=== PATIENT | male | born 1980 | race Caucasian/White ===

== ENCOUNTER 2016-08-14 16:29 | Emergency (ER) | payer BC ==
[2016-08-14] MEDS ORDERED: Sodium Chloride 0.9% 10 ML Syringe FLUSH PRN (16:50)
[2016-08-14] MEDS ORDERED: Ondansetron 4 MG/2 ML SDV IVPUSH ONE (16:50)
[2016-08-14] MEDS ORDERED: Sodium Chloride 0.9% 2.5 ML Syringe FLUSH PRN (16:50)
[2016-08-14] MEDS ORDERED: Sodium Chloride 0.9% 1,000 ML IV ONE (16:55)
[2016-08-14] MEDS ORDERED: HYDROmorphone 2 MG/ML Syringe IVPUSH ONE (16:55)
[2016-08-14] MEDS ORDERED: Ketorolac 30 MG/ML SDV IVPUSH ONE (16:55)
[2016-08-14] MEDS ORDERED: HYDROmorphone 1 MG/ML Syringe IVPUSH ONE (17:01)
--- NOTE | 2016-08-14 17:08 | EDM.PDOC ---
Addendum entered and electronically signed by Desi Leal NP 08/14/16 22: 10: Script for Cipro 500mg one bid x 10 days. Patient called with instructions Original Note: ED HPI GENERAL MEDICAL PROBLEM - General Chief Complaint: Flank Pain Stated Complaint: PT HAS STOMACH PAINS Time Seen by Provider: 08/14/16 16:32 Source of Information: Reports: Patient History Limitations: Reports: No limitations - History of Present Illness INITIAL COMMENTS - FREE TEXT/NARRATIVE: Presents reporting left flank pain. The patient states that he had a kidney stone about 5 years previous. Now he has a 8 hour history of back left flank and left testicular pain which has been worsening. Denies fever dysuria or any other symptoms. Left Flank Pain Score (Numeric/FACES): 10 Left Pain Score (Numeric/FACES): 10 - Related Data Allergies Allergy/AdvReac Type Severity Reaction Status Date / Time No Known Allergies Allergy Verified 08/14/16 16:44 Home Meds: Home Meds FLUoxetine [PROzac] 40 mg PO DAILY 08/14/16 [History] Pantoprazole [ProTONIX] 40 mg PO DAILY 08/14/16 [History] Tamsulosin HCl [Flomax] 0.4 mg PO DAILY #14 cap.er.24h 08/14/16 [Rx] Topiramate 100 mg PO DAILY 08/14/16 [History] Past Medical History Gastrointestinal History: Reports: GERD Neurological History: Reports: Migraines, Seizure Psychiatric History: Reports: Anxiety, Depression - Infectious Disease History Infectious Disease History: Reports: Chicken pox Social & Family History - Family History Family Medical History: Noncontributory - Tobacco Use Smoking Status *Q: Current Every Day Smoker Years of Tobacco use: 20 Packs/Tins Daily: 0.5 - Caffeine Use Caffeine Use: Reports: None - Recreational Drug Use Recreational Drug Use: Yes Drug Use in Last 12 Months: Yes Recreational Drug Type: Reports: Marijuana/Hashish Recreational Drug Use Frequency: Rarely ED ROS GENERAL - Review of Systems Review Of Systems: ROS reveals no pertinent complaints other than HPI. ED EXAM, RENAL/ - Physical Exam Exam: See Below Exam Limited By: No limitations General Appearance: alert, moderate distress (Due to pain) Ears: normal external exam Nose: normal inspection Throat/Mouth: Normal inspection Head: atraumatic, normocephalic Neck: normal inspection Respiratory/Chest: no respiratory distress, lungs clear, normal breath sounds Cardiovascular: normal peripheral pulses, regular rate, rhythm, no murmur GI/Abdominal: Soft Back Exam: normal inspection, full range of motion, CVA tenderness (L) Extremities: normal inspection Neurological: alert, oriented Psychiatric: normal affect, normal mood Skin Exam: Warm, Dry, Intact, Normal color, No rash Course - Vital Signs Last Recorded V/S: Last Vital Signs Temp 36.4 C 08/14/16 19:01 Pulse 100 08/14/16 19:01 Resp 16 08/14/16 19:01 BP 126/71 08/14/16 19:01 Pulse Ox 98 08/14/16 19:01 - Orders/Labs/Meds Orders: Active Orders 24 hr Category Date Time Status Abdomen Pelvis wo Cont [CT] Stat Exams 08/14/16 18:12 Taken Sodium Chloride 0.9% [Saline Flush] Med 08/14/16 16:50 Active 10 ml FLUSH ASDIRECTED PRN Sodium Chloride 0.9% [Saline Flush] Med 08/14/16 16:50 Active 2.5 ml FLUSH ASDIRECTED PRN Saline Lock Insert [OM.PC] Stat Oth 08/14/16 16:50 Ordered Medication Orders Sodium Chloride (Saline Flush) 10 ml FLUSH ASDIRECTED PRN PRN Reason: Keep Vein Open Sodium Chloride (Saline Flush) 2.5 ml FLUSH ASDIRECTED PRN PRN Reason: Keep Vein Open Labs: Laboratory Tests 08/14/16 08/14/16 08/14/16 Range/Units 17:09 17:09 17:52 WBC 17.23 H (4.0-11.0) K/uL RBC 4.93 (4.50-5.90) M/uL Hgb 15.5 (13.0-17.0) g/dL Hct 44.7 (38.0-50.0) % MCV 90.7 (80.0-98.0) fL MCH 31.4 (27.0-32.0) pg MCHC 34.7 (31.0-37.0) g/dL RDW Std Deviation 41.9 (28.0-62.0) fl RDW Coeff of [place] 13 (11.0-15.0) % Plt Count 230 (150-400) K/uL MPV 10.00 (7.40-12.00) fL Neut % (Auto) 69.4 (48.0-80.0) % Lymph % (Auto) 20.1 (16.0-40.0) % [place] % (Auto) 9.8 (0.0-15.0) % Eos % (Auto) 0.6 (0.0-7.0) % Baso % (Auto) 0.1 (0.0-1.5) % Neut # (Auto) 11.9 H (1.4-5.7) K/uL Lymph # (Auto) 3.5 H (0.6-2.4) K/uL [place]ke # (Auto) 1.7 H (0.0-0.8) K/uL Eos # (Auto) 0.1 (0.0-0.7) K/uL Baso # (Auto) 0.0 (0.0-0.1) K/uL Nucleated RBC % 0.0 /100WBC Nucleated RBCs # 0 K/uL Sodium 141 (136-146) mmol/L Potassium 3.8 (3.5-5.1) mmol/L Chloride 113 H (98-110) mmol/L Carbon Dioxide 16 L (21-31) mmol/L BUN 16 (6.0-23.0) mg/dL Creatinine 1.3 (0.6-1.5) mg/dL Est Cr Clr Drug Dosing 81.11 mL/min Estimated GFR (MDRD) > 60.0 ml/min Glucose 104 (60-110) mg/dL Calcium 9.8 (8.8-10.8) mg/dL Total Bilirubin 0.3 (0.1-1.5) mg/dL AST 19 (5-40) IU/L ALT 25 (8-54) IU/L Alkaline Phosphatase 114 (40-150) Total Protein 8.1 H (6.0-8.0) g/dL Albumin 4.4 (3.5-5.0) g/dL Globulin 3.7 H (2.0-3.5) g/dL Albumin/Globulin Ratio 1.2 L (1.3-2.8) Urine Color YELLOW Urine Appearance SLT CLOUDY Urine pH 6.0 (5.0-8.0) Ur Specific [place] 1.025 (1.001-1.035) Urine Protein TRACE (NEGATIVE) mg/dL Urine Glucose (UA) NEGATIVE (NEGATIVE) mg/dL Urine Ketones NEGATIVE (NEGATIVE) mg/dL Urine Occult Blood LARGE H (NEGATIVE) Urine Nitrite NEGATIVE (NEGATIVE) Urine Bilirubin NEGATIVE (NEGATIVE) Urine Urobilinogen 0.2 (<2.0) EU/dL Ur Leukocyte Esterase NEGATIVE (NEGATIVE) Urine RBC 50-75 (0-2/HPF) Urine WBC 1-2 (0-5/HPF) Ur Epithelial Cells RARE (NONE-FEW) Urine Bacteria FEW (NEGATIVE) Urine Mucus LIGHT (NONE-MOD) Meds: Medications Generic Name Dose Route Start Last Admin Trade Name Freq PRN Reason Stop Dose Admin Sodium Chloride 10 ml 08/14/16 16:50 Saline Flush FLUSH ASDIRECTED PRN Keep Vein Open Sodium Chloride 2.5 ml 08/14/16 16:50 Saline Flush FLUSH ASDIRECTED PRN Keep Vein Open Discontinued Medications Generic Name Dose Route Start Last Admin Trade Name Freq PRN Reason Stop Dose Admin Hydromorphone HCl 1 mg 08/14/16 16:55 08/14/16 17:22 Dilaudid IVPUSH 08/14/16 16:56 Not Given ONETIME ONE Hydromorphone HCl 0.5 mg 08/14/16 17:01 08/14/16 17:17 Dilaudid IVPUSH 08/14/16 17:02 0.5 mg ONETIME ONE Administration Sodium Chloride 1,000 mls @ 999 mls/hr 08/14/16 16:55 08/14/16 17:12 Normal Saline IV 08/14/16 17:55 999 mls/hr STAT ONE Administration Ketorolac Tromethamine 30 mg 08/14/16 16:55 08/14/16 17:15 Toradol IVPUSH 08/14/16 16:56 30 mg ONETIME ONE Administration Ondansetron HCl 4 mg 08/14/16 16:50 08/14/16 17:13 Zofran IVPUSH 08/14/16 16:51 4 mg ONETIME ONE Administration Departure - Departure Time of Disposition: 20:04 Disposition: Home, Self-Care 01 Condition: good Clinical Impression: Renal calculi - Discharge Information Referrals: PCP,None [Primary Care Provider] - Matt Gilbert MD [Physician] - Forms: ED Department Discharge Additional Instructions: 1. Drink plenty of fluids. 2. Flomax one daily 3. Pain medication every 4 hours as needed. 4. Follow up with Dr. Gilbert, Urology in the clinic. - My Orders Last 24 Hours: My Active Orders 08/14/16 16:50 Sodium Chloride 0.9% [Saline Flush] 10 ml FLUSH ASDIRECTED PRN Sodium Chloride 0.9% [Saline Flush] 2.5 ml FLUSH ASDIRECTED PRN Saline Lock Insert [OM.PC] Stat 08/14/16 18:12 Abdomen Pelvis wo Cont [CT] Stat - Assessment/Plan Last 24 Hours: My Active Orders 08/14/16 16:50 Sodium Chloride 0.9% [Saline Flush] 10 ml FLUSH ASDIRECTED PRN Sodium Chloride 0.9% [Saline Flush] 2.5 ml FLUSH ASDIRECTED PRN Saline Lock Insert [OM.PC] Stat 08/14/16 18:12 Abdomen Pelvis wo Cont [CT] Stat
[2016-08-14 17:40] LABS: CHLORIDE,CL 113 mmol/L (98-110); SODIUM,NA 141 mmol/L (136-146)
[2016-08-14 20:28] VITALS: BP 120/78
--- NOTE | 2016-08-15 15:46 | CT ---
EXAM DATE: 08/14/16 PATIENT'S AGE: 36 Patient: MISAEL FORDE Facility: [place], [place] Site . Site : 1980 Study: CT Abdomen/Pelvis [id number]/9/2017 6:35:53 PM Ordering Physician: Doctor Fermin Final Report: INDICATION: Left flank pain. TECHNIQUE: CT abdomen and pelvis without contrast. COMPARISON: None FINDINGS: Lower chest: Unremarkable. Liver: Diffuse moderate low-attenuation steatosis. . Spleen: Unremarkable. Pancreas: Unremarkable. Gallbladder and bile ducts: Unremarkable. Kidneys: 6 x 8 mm calcification upper pole collecting system left kidney. Subtle peripelvic stranding left kidney. Minimal pelviectasis and diffuse left hydroureter without filling measurable ureteral defect. Too small to measure high attenuation focus posterior bladder or ureteral vesicular junction (image 58 series 203 and image 132 series 201). Urinary bladder is decompressed. 1 mm nonobstructing calculus lower pole right kidney. Adrenal glands: Unremarkable. GI tract: Unremarkable. Appendix is normal. Vascular structures: Unremarkable. Lymph nodes: Unremarkable. Miscellaneous: Unremarkable. No free air or significant free fluid. Pelvic Organs: Unremarkable. Bones: Unremarkable for age. IMPRESSION: Very subtle hydronephrosis and hydroureter on the left may be too small to measure UVJ stone or related to recently passed stone. Moderately large nonobstructing calculus mid pole left kidney. An 8 mm upper pole nonobstructing calculus left kidney. Dictated by Justino Chambers MD @ Aug 14 2016 6:57PM (Electronic Signature) Report Signed by Proxy. KIET
== END 2016-08-14 20:20 | disposition home or self-care (01) ==
LOC: MW.ED 16:29
DX: N13.2 Hydronephrosis with renal and ureteral calculous obstruction (principal); F41.9 Anxiety disorder, unspecified; F32.9 Major depressive disorder, single episode, unspecified; K21.9 Gastro-esophageal reflux disease without esophagitis; F17.210 Nicotine dependence, cigarettes, uncomplicated; Z79.899 Other long term (current) drug therapy
CPT/HCPCS: 36415; 74176; 80053; 81001; 85025; 96361; 96374; 96375; 99284; J1170; J1885; J2405; J7040

== ENCOUNTER → 2016-08-27 | Outpatient (CLI) | payer BC | LOC: EDBD → MW.CHUR 10:22 → MERGE 10:22 | PROVIDERS: ATTEND Urology | DX: N20.0 Calculus of kidney (principal) | CPT/HCPCS: 81001 ==

== ENCOUNTER 2016-11-13 19:06 | Emergency (ER) | payer BC, OTHER ==
[2016-11-13] MEDS ORDERED: Sodium Chloride 0.9% 2.5 ML Syringe FLUSH PRN (19:37)
[2016-11-13] MEDS ORDERED: Sodium Chloride 0.9% 1,000 ML IV ONE (19:37)
[2016-11-13] MEDS ORDERED: Sodium Chloride 0.9% 10 ML Syringe FLUSH PRN (19:37)
--- NOTE | 2016-11-13 19:42 | EDM.PDOC ---
ED HPI GENERAL MEDICAL PROBLEM - General Chief Complaint: Genitourinary Problem Stated Complaint: URINATING BLOOD Time Seen by Provider: 11/13/16 19:30 - History of Present Illness INITIAL COMMENTS - FREE TEXT/NARRATIVE: HISTORY AND PHYSICAL: History of present illness: The patient is a 36 y/o male with a history of a kidney stone in the past that he passed spontaneously and followed with our urologist presents with complaints of left flank pain that he had yesterday which has since subsided and hematuria started today. According to the patient the pain he had yesterday felt like kidney stone pain and took a leftover hydrocodone he had as well as an Aleve and the pain seemed to subside. He still feels a dull ache at his left lower back but it is not radiating to his abdomen he has no testicular pain or swelling. He had no dysuria frequency or urgency. He does not feel like he has urinary retention. Today he started passing urine with blood and he was concerned as that didn't happen so obviously last time kidney stone. He is not nauseated and has no fever. Currently in the ED he has no pain and no sensation of urinary retention. Patient admits he does not hydrate very well and is more caffeinated products. He states he has never been told that he has a large prostate and has never had prostate issues. Review of systems: As per history of present illness and below otherwise all systems reviewed and negative. Past medical history: As per history of present illness and as reviewed below otherwise noncontributory. Surgical history: As per history of present illness and as reviewed below otherwise noncontributory. Social history: No reported history of drug or alcohol abuse. Family history: As per history of present illness and as reviewed below otherwise noncontributory. Physical exam: Gen.: Well-developed well-nourished man who is nontoxic and does not look uncomfortable in the ER. Vital signs have been noted by me HEENT: Atraumatic, normocephalic, negative for conjunctival pallor or scleral icterus, mucous membranes tacky, throat clear, neck supple, nontender, trachea midline. Lungs: Clear to auscultation, breath sounds equal bilaterally, chest nontender. Heart: S1S2, regular rate and rhythm no overt murmurs Abdomen: Soft, nondistended, nontender. I cannot reproduce the pain on palpation of the left lower abdomen or left side of the abdomen. Negative for masses or hepatosplenomegaly. Negative for costovertebral tenderness. Pelvis: Stable nontender. Genitourinary: Deferred. Rectal: Deferred. Extremities: Atraumatic, negative for cords or calf pain. Neurovascular unremarkable. Neuro: Awake, alert, oriented. Cranial nerves II through XII unremarkable. Cerebellum unremarkable. Motor and sensory unremarkable throughout. Exam nonfocal. Back: There are no midline step-offs tenderness defects of the thoracic or lumbar spine no CVA tenderness posterior rib tenderness. On palpation of the lumbar back I am unable to reproduce the pain exactly Diagnostics: UA urine culture CBC CMP CT scan of the abdomen and pelvis bladder scan Therapeutics: IV fluids Patient states he does not currently having pain so he defers pain medication Post void bladder scan revealed 54 mL of retained urine. 2125: CT scan and lab results were discussed with Dr. Gilbert as well as the patient. The patient remains pain-free and is aware of this large kidney stone within the left renal pelvis. Dr. Gilbert wants the patient to come to his office within the next 1-2 days to discuss the stone. Patient is comfortable with that plan. I will give him some [place] for home encase the pain comes back and advise about hydration Impression: Left kidney stone with hematuria Definitive disposition and diagnosis as appropriate pending reevaluation and review of above. left flank Pain Score (Numeric/FACES): 1 - Related Data Allergies Allergy/AdvReac Type Severity Reaction Status Date / Time No Known Allergies Allergy Verified 11/13/16 19:21 Home Meds: Home Meds FLUoxetine [PROzac] 40 mg PO DAILY 08/14/16 [History] Pantoprazole [ProTONIX] 40 mg PO DAILY 08/14/16 [History] Tamsulosin HCl [Flomax] 0.4 mg PO DAILY #14 cap.er.24h 08/14/16 [Rx] Topiramate 100 mg PO DAILY 08/14/16 [History] Past Medical History Gastrointestinal History: Reports: GERD Neurological History: Reports: Migraines, Seizure Psychiatric History: Reports: Anxiety, Depression - Infectious Disease History Infectious Disease History: Reports: Chicken Pox Social & Family History - Family History Family Medical History: Noncontributory - Tobacco Use Smoking Status *Q: Current Every Day Smoker Years of Tobacco use: 20 Packs/Tins Daily: 0.5 - Caffeine Use Caffeine Use: Reports: None - Recreational Drug Use Recreational Drug Use: Yes Drug Use in Last 12 Months: Yes Recreational Drug Type: Reports: Marijuana/Hashish Recreational Drug Use Frequency: Rarely ED ROS GENERAL - Review of Systems Review Of Systems: ROS reveals no pertinent complaints other than HPI. ED EXAM, GENERAL - Physical Exam Exam: See Below (See dictation) Course - Vital Signs Last Recorded V/S: Last Vital Signs Temp 36.4 C 11/13/16 21:24 Pulse 73 11/13/16 21:24 Resp 17 11/13/16 21:24 BP 126/77 11/13/16 21:24 Pulse Ox 96 11/13/16 21:24 - Orders/Labs/Meds Orders: Active Orders 24 hr Category Date Time Status Abdomen Pelvis w Cont [CT] Stat Exams 11/13/16 19:37 Taken CULTURE URINE [RM] Stat Lab 11/13/16 19:28 Received Sodium Chloride 0.9% [Saline Flush] Med 11/13/16 19:37 Active 10 ml FLUSH ASDIRECTED PRN Sodium Chloride 0.9% [Saline Flush] Med 11/13/16 19:37 Active 2.5 ml FLUSH ASDIRECTED PRN Saline Lock Insert [OM.PC] Stat Oth 11/13/16 19:36 Ordered Medication Orders Sodium Chloride (Saline Flush) 10 ml FLUSH ASDIRECTED PRN PRN Reason: Keep Vein Open Last Admin: 11/13/16 19:53 Dose: 10 ml Sodium Chloride (Saline Flush) 2.5 ml FLUSH ASDIRECTED PRN PRN Reason: Keep Vein Open Last Admin: 11/13/16 19:53 Dose: 2.5 ml Labs: Laboratory Tests 11/13/16 11/13/16 11/13/16 Range/Units 19:28 19:50 19:50 WBC 10.92 (4.0-11.0) K/uL RBC 4.64 (4.50-5.90) M/uL Hgb 14.4 (13.0-17.0) g/dL Hct 42.0 (38.0-50.0) % MCV 90.5 (80.0-98.0) fL MCH 31.0 (27.0-32.0) pg MCHC 34.3 (31.0-37.0) g/dL RDW Std Deviation 42.1 (28.0-62.0) fl RDW Coeff of [place] 13 (11.0-15.0) % Plt Count 199 (150-400) K/uL MPV 10.10 (7.40-12.00) fL Neut % (Auto) 57.0 (48.0-80.0) % Lymph % (Auto) 31.7 (16.0-40.0) % [place] % (Auto) 10.0 (0.0-15.0) % Eos % (Auto) 1.1 (0.0-7.0) % Baso % (Auto) 0.2 (0.0-1.5) % Neut # (Auto) 6.2 H (1.4-5.7) K/uL Lymph # (Auto) 3.5 H (0.6-2.4) K/uL [place] # (Auto) 1.1 H (0.0-0.8) K/uL Eos # (Auto) 0.1 (0.0-0.7) K/uL Baso # (Auto) 0.0 (0.0-0.1) K/uL Nucleated RBC % 0.0 /100WBC Nucleated RBCs # 0 K/uL Sodium 142 (136-146) mmol/L Potassium 3.6 (3.5-5.1) mmol/L Chloride 110 (98-110) mmol/L Carbon Dioxide 21 (21-31) mmol/L BUN 17 (6.0-23.0) mg/dL Creatinine 1.1 (0.6-1.5) mg/dL Est Cr Clr Drug Dosing 98.88 mL/min Estimated GFR (MDRD) > 60.0 ml/min Glucose 85 (60-110) mg/dL Calcium 8.9 (8.8-10.8) mg/dL Total Bilirubin 0.4 (0.1-1.5) mg/dL AST 21 (5-40) IU/L ALT 34 (8-54) IU/L Alkaline Phosphatase 93 (40-150) Total Protein 7.5 (6.0-8.0) g/dL Albumin 4.1 (3.5-5.0) g/dL Globulin 3.4 (2.0-3.5) g/dL Albumin/Globulin Ratio 1.2 L (1.3-2.8) Urine Color RED Urine Appearance CLOUDY Urine pH 6.0 (5.0-8.0) Ur Specific [place] >= 1.030 (1.001-1.035) Urine Protein 100 (NEGATIVE) mg/dL Urine Glucose (UA) NEGATIVE (NEGATIVE) mg/dL Urine Ketones NEGATIVE (NEGATIVE) mg/dL Urine Occult Blood LARGE H (NEGATIVE) Urine Nitrite NEGATIVE (NEGATIVE) Urine Bilirubin NEGATIVE (NEGATIVE) Urine Urobilinogen 0.2 (<2.0) EU/dL Ur Leukocyte Esterase NEGATIVE (NEGATIVE) Urine RBC TOO NUMBEROUS TO CT (0-2/HPF) Urine WBC 4-8 (0-5/HPF) Ur Epithelial Cells RARE (NONE-FEW) Urine Bacteria FEW (NEGATIVE) Urine Mucus MODERATE (NONE-MOD) Meds: Medications Generic Name Dose Route Start Last Admin Trade Name Freq PRN Reason Stop Dose Admin Sodium Chloride 10 ml 11/13/16 19:37 11/13/16 19:53 Saline Flush FLUSH 10 ml ASDIRECTED PRN Administration Keep Vein Open Sodium Chloride 2.5 ml 11/13/16 19:37 11/13/16 19:53 Saline Flush FLUSH 2.5 ml ASDIRECTED PRN Administration Keep Vein Open Discontinued Medications Generic Name Dose Route Start Last Admin Trade Name Freq PRN Reason Stop Dose Admin Sodium Chloride 1,000 mls @ 999 mls/hr 11/13/16 19:37 11/13/16 19:53 Normal Saline IV 11/13/16 20:37 999 mls/hr STAT ONE Administration Iopamidol 100 ml 11/13/16 19:54 11/13/16 20:26 Isovue Multipack-370 (76%) IVPUSH 11/13/16 19:55 100 ml ONETIME STA Administration Departure - Departure Time of Disposition: 21:29 Disposition: Home, Self-Care 01 Condition: Good Clinical Impression: Kidney stone - Discharge Information Forms: ED Department Discharge Additional Instructions: The following information is given to patients seen in the emergency department who are being discharged to home. This information is to outline your options for follow-up care. We provide all patients seen in our emergency department with a follow-up referral. The need for follow-up, as well as the timing and circumstances, are variable depending upon the specifics of your emergency department visit. If you don't have a primary care physician on staff, we will provide you with a referral. We always advise you to contact your personal physician following an emergency department visit to inform them of the circumstance of the visit and for follow-up with them and/or the need for any referrals to a consulting specialist. The emergency department will also refer you to a specialist when appropriate. This referral assures that you have the opportunity for followup care with a specialist. All of these measure are taken in an effort to provide you with optimal care, which includes your followup. Under all circumstances we always encourage you to contact your private physician who remains a resource for coordinating your care. When calling for followup care, please make the office aware that this follow-up is from your recent emergency room visit. If for any reason you are refused follow-up, please contact the [facility] emergency department at and ask to speak to the emergency department charge nurse. [facility] [address] [place] [phone] Push hydration and use medications as you need for any pain. Please call tomorrow for follow-up appointment as we discussed . Please return to ER as needed and as discussed. - My Orders Last 24 Hours: My Active Orders 11/13/16 19:28 CULTURE URINE [RM] Stat 11/13/16 19:36 Saline Lock Insert [OM.PC] Stat 11/13/16 19:37 Abdomen Pelvis w Cont [CT] Stat Sodium Chloride 0.9% [Saline Flush] 10 ml FLUSH ASDIRECTED PRN Sodium Chloride 0.9% [Saline Flush] 2.5 ml FLUSH ASDIRECTED PRN - Assessment/Plan Last 24 Hours: My Active Orders 11/13/16 19:28 CULTURE URINE [RM] Stat 11/13/16 19:36 Saline Lock Insert [OM.PC] Stat 11/13/16 19:37 Abdomen Pelvis w Cont [CT] Stat Sodium Chloride 0.9% [Saline Flush] 10 ml FLUSH ASDIRECTED PRN Sodium Chloride 0.9% [Saline Flush] 2.5 ml FLUSH ASDIRECTED PRN
[2016-11-13] MEDS ORDERED: Iopamidol 755 MG/ML 500 ML Multipack Bottle IVPUSH STA (19:54)
[2016-11-13 20:19] LABS: CHLORIDE,CL 110 mmol/L (98-110); SODIUM,NA 142 mmol/L (136-146)
[2016-11-13 21:49] VITALS: BP 124/71
--- NOTE | 2016-11-14 09:58 | CT ---
EXAM DATE: 11/13/16 PATIENT'S AGE: 36 Patient: MISAEL FORDE Facility: [place], [place] Site . Site : 1980 Study: CT Abdomen/Pelvis [id number]/8/2017 9:00:36 PM Ordering Physician: Sherri Bennett Final Report: INDICATION: Abdominal pain left common hematuria TECHNIQUE: CT abdomen and pelvis acquired with i.v. contrast. Coronal and sagittal reformats were obtained. COMPARISON: 08/14/2016. FINDINGS: Lower chest: Unremarkable. Liver: Mild diffuse fatty infiltration of the liver is present. Spleen: Unremarkable. Pancreas: Unremarkable. Gallbladder and bile ducts: Unremarkable. Kidneys: There is an 11 mm stone within the left renal pelvis with no significant caliectasis is seen. This stone was previously seen within the left posterior upper pole calyx. A 1 mm stone is present in the lower pole of the right kidney. Adrenal glands: Unremarkable. GI tract: Unremarkable. The appendix is not identified. Vascular: Unremarkable. Lymph nodes: Unremarkable. Miscellaneous: Unremarkable. No pneumoperitoneum is seen. No significant ascites is noted. Pelvic Organs: Unremarkable. Bones: Unremarkable for age. IMPRESSION: 1. There is an 11 mm stone within the left renal pelvis with no significant caliectasis is seen. Dictated by Shalom Mitchell MD @ 11/13/2016 9:17:07 PM Dictated by: Shalom Mitchell MD @ 11/13/2016 21:17:19 (Electronic Signature) Report Signed by Proxy. [facility] MEDICAL CENTERJorge Luis
== END 2016-11-13 21:50 | disposition home or self-care (01) ==
LOC: MW.ED 19:06
DX: N20.0 Calculus of kidney (principal); K21.9 Gastro-esophageal reflux disease without esophagitis; F41.9 Anxiety disorder, unspecified; F32.9 Major depressive disorder, single episode, unspecified; Z79.899 Other long term (current) drug therapy; F17.210 Nicotine dependence, cigarettes, uncomplicated
CPT/HCPCS: 36415; 51798; 74177; 80053; 81001; 85025; 87086; 96360; 99284; J7040; Q9967; 99283

== ENCOUNTER 2016-11-29 06:17 | Day surgery (SDC) | payer OTHER ==
[2016-11-29] MEDS ORDERED: Lactated Ringers 1,000 ML IV SCH (07:00)
[2016-11-29] MEDS ORDERED: Propofol 200 MG/20 ML SDV ONE (07:27)
[2016-11-29] MEDS ORDERED: Lidocaine 2% 5 ML SDV ONE (07:27)
[2016-11-29] MEDS ORDERED: Succinylcholine/Normal Saline 200 MG/10 ML Syringe ONE (07:27)
[2016-11-29] MEDS ORDERED: Midazolam 1 MG/ML 2 ML SDV ONE (07:27)
[2016-11-29] MEDS ORDERED: fentaNYL 250 MCG/5 ML SDV ONE (07:27)
[2016-11-29] MEDS ORDERED: Rocuronium 10 MG/ML 10 ML Syringe ONE (07:27)
[2016-11-29] MEDS ORDERED: Ondansetron 4 MG/2 ML SDV ONE (07:27)
[2016-11-29] MEDS ORDERED: ceFAZolin 1 GM Vial ONE (08:18)
[2016-11-29] MEDS ORDERED: Dexamethasone 4 MG/ML 5 ML MDV ONE (08:18)
[2016-11-29] MEDS ORDERED: Sodium Chloride 0.9% 20 ML ONE (08:18)
--- NOTE | 2016-11-29 08:46 | PCM.PREANE ---
Preanesthetic Assessment - Anesthesia/Transfusion/Family Hx Anesthesia History: Prior Anesthesia Without Reaction Family History of Anesthesia Reaction: No Transfusion History: No Prior Transfusion(s) Intubation History: Unknown - Review of Systems General: No Symptoms Pulmonary: No Symptoms Cardiovascular: No Symptoms Gastrointestinal: No Symptoms Neurological: No Symptoms Other: Reports: None - Physical Assessment Height: 1.8 m Weight: 122.016 kg ASA Class: 2 Mental Status: Alert & Oriented x3 Airway Class: Mallampati = 2 Dentition: Reports: Normal Dentition Thyro-Mental Finger Breadths: 3 Mouth Opening Finger Breadths: 2 ROM/Head Extension: Full Lungs: Clear to Auscultation, Normal Respiratory Effort Cardiovascular: Regular Rate, Regular Rhythm - Allergies Allergies/Adverse Reactions: Allergies Allergy/AdvReac Type Severity Reaction Status Date / Time No Known Allergies Allergy Verified 11/13/16 19:21 - Blood Blood Available: No - Anesthesia Plan Pre-Op Medication Ordered: None - Acknowledgements Anesthesia Type Planned: General Anesthesia Pt an Appropriate Candidate for the Planned Anesthesia: Yes Alternatives and Risks of Anesthesia Discussed w Pt/Guardian: Yes Pt/Guardian Understands and Agrees with Anesthesia Plan: Yes PreAnesthesia Questionnaire HEENT History: Reports: None Other HEENT History: wears glasses Cardiovascular History: Reports: None Respiratory History: Reports: None Gastrointestinal History: Reports: GERD, Other (See Below) (h/o gastric ulcer) Genitourinary History: Reports: Renal Calculus Musculoskeletal History: Reports: Fracture Other Musculoskeletal History: hx of fx right hand Neurological History: Reports: Concussion, Migraines, Seizure Other Neuro History: has "low grade seizure disorder", last siezure was 3 years ago Psychiatric History: Reports: Anxiety, Depression Endocrine/Metabolic History: Reports: Obesity/BMI 30+ (BMI 37.5) Hematologic History: Reports: None Immunologic History: Reports: None Oncologic (Cancer) History: Reports: None Dermatologic History: Reports: Eczema - Infectious Disease History Infectious Disease History: Reports: Chicken Pox - Past Surgical History Head Surgeries/Procedures: Reports: None GI Surgical History: Reports: None Male Surgical History: Reports: Vasectomy Musculoskeletal Surgical History: Reports: ORIF Other Musculoskeletal Surgeries/Procedures:: right hand 4th finger pinning and pin removal - SUBSTANCE USE Smoking Status *Q: Former Smoker (quit again in july of this year) Tobacco Use Within Last Twelve Months: Cigarettes Recreational Drug Use History: Yes Recreational Drug Type: Reports: Marijuana/Hashish - HOME MEDS Home Medications: Home Meds FLUoxetine [PROzac] 40 mg PO DAILY 08/14/16 [History] Pantoprazole [ProTONIX] 40 mg PO DAILY 08/14/16 [History] Topiramate 100 mg PO DAILY 08/14/16 [History] Hydrocodone/Acetaminophen [Hydrocodon-Acetaminoph 7.5-325] 1 tab PO ASDIRECTED PRN 11/23/16 [History] - CURRENT (IN HOUSE) MEDS Current Meds: Current Medications Lactated Ringer's (Ringers, Lactated) 1,000 mls @ 100 mls/hr IV ASDIRECTED TAHIR Discontinued Medications Cefazolin Sodium (Ancef) Confirm Administered Dose 2 gm .ROUTE .STK-MED ONE Stop: 11/29/16 08:19 Dexamethasone (Dexamethasone) Confirm Administered Dose 20 mg .ROUTE .STK-MED ONE Stop: 11/29/16 08:19 Fentanyl (Sublimaze) Confirm Administered Dose 250 mcg .ROUTE .STK-MED ONE Stop: 11/29/16 07:28 Sodium Chloride (Normal Saline) Confirm Administered Dose 20 mls @ as directed .ROUTE .STK-MED ONE Stop: 11/29/16 08:19 Lidocaine (Xylocaine-Mpf 2%) Confirm Administered Dose 5 ml .ROUTE .STK-MED ONE Stop: 11/29/16 07:28 Midazolam HCl (Versed 1 Mg/Ml) Confirm Administered Dose 2 mg .ROUTE .STK-MED ONE Stop: 11/29/16 07:28 Ondansetron HCl (Zofran) Confirm Administered Dose 4 mg .ROUTE .STK-MED ONE Stop: 11/29/16 07:28 Propofol (Diprivan 20 Ml) Confirm Administered Dose 200 mg .ROUTE .STK-MED ONE Stop: 11/29/16 07:28 Rocuronium [place] (Zemuron) Confirm Administered Dose 100 mg .ROUTE .STK-MED ONE Stop: 11/29/16 07:28 Succinylcholine Chloride (Succinylcholine In Ns Pf) Confirm Administered Dose 200 mg .ROUTE .STK-MED ONE Stop: 11/29/16 07:28
--- NOTE | 2016-11-29 09:23 | PCM.POSTAN ---
POST ANESTHESIA ASSESSMENT - MENTAL STATUS Mental Status: Alert, Oriented - RESPIRATORY Respiratory Status: Respiratory Rate WNL, Airway Patent, O2 Saturation Stable - CARDIOVASCULAR CV Status: Pulse Rate WNL, Blood Pressure Stable - GASTROINTESTINAL GI Status: No Symptoms - PAIN Pain Score: 0 - POST OP HYDRATION Hydration Status: Adequate & Stable
[2016-11-29 11:45] VITALS: BP 116/71
--- NOTE | 2016-11-29 12:41 | OR ---
SURGEON: Matt Gilbert M.D. DATE OF PROCEDURE: 11/29/2016 PREOPERATIVE DIAGNOSIS: Left ureteropelvic junction stone. POSTOPERATIVE DIAGNOSIS: Left ureteropelvic junction stone. OPERATION: Extracorporeal shock wave lithotripsy. DESCRIPTION OF PROCEDURE: The patient was given general anesthesia. Position of the patient was adjusted, so the stone could be treated and eventually received 2200 shocks. At the end of the treatment, the shadow of the stone completely changed indicating good fragmentation. With that done, the procedure was terminated and the patient was moved to recovery room in good condition. RADHAMES / JOSE /[id number]
== END 2016-11-29 11:42 | disposition home or self-care (01) ==
LOC: MW.SDS 06:17
PROVIDERS: ATTEND Urology
DX: N20.1 Calculus of ureter (principal); K21.9 Gastro-esophageal reflux disease without esophagitis; F41.9 Anxiety disorder, unspecified; F32.9 Major depressive disorder, single episode, unspecified; E66.9 Obesity, unspecified; Z87.442 Personal history of urinary calculi; Z87.891 Personal history of nicotine dependence; Z98.52 Vasectomy status; Z98.890 Other specified postprocedural states; Z79.899 Other long term (current) drug therapy; Z68.37 Body mass index [BMI] 37.0-37.9, adult
CPT/HCPCS: 50590; J0690; J1100; J2250; J2405; J3010; 00873; J2704

== ENCOUNTER 2018-06-28 02:33 | Emergency (ER) | payer BC, OTHER ==
[2018-06-28] MEDS ORDERED: Ondansetron 4 MG/2 ML SDV IVPUSH ONE (02:48)
[2018-06-28] MEDS ORDERED: Sodium Chloride 0.9% 1,000 ML IV ONE ×3 (02:48→07:44)
[2018-06-28] MEDS ORDERED: Ketorolac 30 MG/ML SDV IVPUSH ONE (02:48)
--- NOTE | 2018-06-28 02:49 | EDM.PDOC ---
<Jaziel Bhat - Last Filed: 06/28/18 06:37> ED HPI GENERAL MEDICAL PROBLEM - General Chief Complaint: Flank Pain Stated Complaint: KIDNEY STONE Time Seen by Provider: 06/28/18 02:49 Source of Information: Reports: Patient - History of Present Illness INITIAL COMMENTS - FREE TEXT/NARRATIVE: HISTORY AND PHYSICAL: History of present illness: [Patient with history of kidney stones presents with left flank pain radiating to the groin 5 out of 10 some intermittent nausea no vomiting no fever chills sweats ] Review of systems: As per history of present illness and below otherwise all systems reviewed and negative. Past medical history: As per history of present illness and as reviewed below otherwise noncontributory. Surgical history: As per history of present illness and as reviewed below otherwise noncontributory. Social history: No reported history of drug or alcohol abuse. Family history: As per history of present illness and as reviewed below otherwise noncontributory. Physical exam: HEENT: Atraumatic, normocephalic, pupils reactive, negative for conjunctival pallor or scleral icterus, mucous membranes moist, throat clear, neck supple, nontender, trachea midline. Lungs: Clear to auscultation, breath sounds equal bilaterally, chest nontender. Heart: S1S2, regular, negative for clicks, rubs, or JVD. Abdomen: Soft, nondistended, nontender. Negative for masses or hepatosplenomegaly. Negative for costovertebral tenderness. Pelvis: Stable nontender. Genitourinary: Deferred. Rectal: Deferred. Extremities: Atraumatic, negative for cords or calf pain. Neurovascular unremarkable. Neuro: Awake, alert, oriented. Cranial nerves II through XII unremarkable. Cerebellum unremarkable. Motor and sensory unremarkable throughout. Exam nonfocal. Diagnostics: [CBC CMP UA blood cultures CT abdomen pelvis no contrast ] Therapeutics: [Normal saline Zofran 8 mg IV Toradol 30 mg IV Flomax 40 mg by mouth now Solu-Medrol 125 mg IV now rocephine 1G IV 0600: patient discussed in detail with Dr. Song -urology neon electrician [facility], advises to observe for 1-2 hours to allow stone to pass will accept patient if stone remains static ] Impression: 3. 5 mm left ureteral stone Definitive disposition and diagnosis as appropriate pending reevaluation and review of above. left flank Pain Score (Numeric/FACES): 8 - Related Data Allergies Allergy/AdvReac Type Severity Reaction Status Date / Time No Known Allergies Allergy Verified 06/28/18 02:49 Home Meds: Home Meds FLUoxetine [PROzac] 40 mg PO DAILY 08/14/16 [History] Topiramate 100 mg PO DAILY 08/14/16 [History] Hydrocodone/Acetaminophen [Hydrocodon-Acetaminoph 7.5-325] 5 - 325 tab PO ASDIRECTED PRN 11/23/16 [History] Omeprazole 20 mg PO DAILY 06/28/18 [History] Past Medical History HEENT History: Reports: None Other HEENT History: wears glasses Cardiovascular History: Reports: None Respiratory History: Reports: None Gastrointestinal History: Reports: GERD, Other (See Below) (h/o gastric ulcer) Genitourinary History: Reports: Renal Calculus Musculoskeletal History: Reports: Fracture Other Musculoskeletal History: hx of fx right hand Neurological History: Reports: Concussion, Migraines, Seizure Other Neuro History: has "low grade seizure disorder", last siezure was 3 years ago Psychiatric History: Reports: Anxiety, Depression Endocrine/Metabolic History: Reports: Obesity/BMI 30+ (BMI 37.5) Hematologic History: Reports: None Immunologic History: Reports: None Oncologic (Cancer) History: Reports: None Dermatologic History: Reports: Eczema - Infectious Disease History Infectious Disease History: Reports: Chicken Pox - Past Surgical History Head Surgeries/Procedures: Reports: None GI Surgical History: Reports: None Male Surgical History: Reports: Vasectomy Musculoskeletal Surgical History: Reports: ORIF Other Musculoskeletal Surgeries/Procedures:: right hand 4th finger pinning and pin removal Social & Family History - Family History Family Medical History: Noncontributory - Caffeine Use Caffeine Use: Reports: None Course - Vital Signs Last Recorded V/S: Last Vital Signs Temp 36.8 C 06/28/18 06:00 Pulse 92 06/28/18 08:08 Resp 18 06/28/18 06:00 BP 166/84 H 06/28/18 08:08 Pulse Ox 96 06/28/18 08:08 - Orders/Labs/Meds Orders: Active Orders 24 hr Category Date Time Status Abdomen Pelvis wo Cont [CT] Stat Exams 06/28/18 02:48 Taken CULTURE BLOOD [BC] Stat Lab 03/23/19 03:10 Received CULTURE BLOOD [BC] Stat Lab 06/28/18 03:23 Received CULTURE URINE [RM] Stat Lab 06/28/18 03:00 Received Blood Culture x2 Reflex Set [OM.PC] Stat Oth 06/28/18 02:48 Ordered Labs: Laboratory Tests 06/28/18 06/28/18 06/28/18 Range/Units 03:00 03:10 03:10 WBC 12.16 H (4.0-11.0) K/uL RBC 5.04 (4.50-5.90) M/uL Hgb 15.7 (13.0-17.0) g/dL Hct 44.9 (38.0-50.0) % MCV 89.1 (80.0-98.0) fL MCH 31.2 (27.0-32.0) pg MCHC 35.0 (31.0-37.0) g/dL RDW Std Deviation 41.1 (28.0-62.0) fl RDW Coeff of [place] 13 (11.0-15.0) % Plt Count 211 (150-400) K/uL MPV 10.40 (7.40-12.00) fL Neut % (Auto) 66.5 (48.0-80.0) % Lymph % (Auto) 24.7 (16.0-40.0) % [place] % (Auto) 8.0 (0.0-15.0) % Eos % (Auto) 0.7 (0.0-7.0) % Baso % (Auto) 0.1 (0.0-1.5) % Neut # (Auto) 8.1 H (1.4-5.7) K/uL Lymph # (Auto) 3.0 H (0.6-2.4) K/uL [place] # (Auto) 1.0 H (0.0-0.8) K/uL Eos # (Auto) 0.1 (0.0-0.7) K/uL Baso # (Auto) 0.0 (0.0-0.1) K/uL Nucleated RBC % 0.0 /100WBC Nucleated RBCs # 0 K/uL Sodium 141 (136-148) mmol/L Potassium 3.7 (3.5-5.1) mmol/L Chloride 105 (98-107) mmol/L Carbon Dioxide 22.1 (21.0-32.0) mmol/L BUN 16 (7.0-18.0) mg/dL Creatinine 1.5 H (0.8-1.3) mg/dL Est Cr Clr Drug Dosing 68.94 mL/min Estimated GFR (MDRD) 52.4 ml/min Glucose 134 H (74-106) mg/dL Calcium 8.9 (8.5-10.1) mg/dL Total Bilirubin 0.3 (0.2-1.0) mg/dL AST 14 L (15-37) IU/L ALT 34 (14-63) IU/L Alkaline Phosphatase 119 H (46-116) U/L Total Protein 7.8 (6.4-8.2) g/dL Albumin 3.8 (3.4-5.0) g/dL Globulin 4.0 (2.6-4.0) g/dL Albumin/Globulin Ratio 0.9 (0.9-1.6) Urine Color YELLOW Urine Appearance HAZY Urine pH 5.0 (5.0-8.0) Ur Specific [place] >= 1.030 (1.001-1.035) Urine Protein 100 H (NEGATIVE) mg/dL Urine Glucose (UA) NEGATIVE (NEGATIVE) mg/dL Urine Ketones 15 H (NEGATIVE) mg/dL Urine Occult Blood LARGE H (NEGATIVE) Urine Nitrite POSITIVE H (NEGATIVE) Urine Bilirubin SMALL H (NEGATIVE) Urine Ictotest NEGATIVE Urine Urobilinogen 1.0 (<2.0) EU/dL Ur Leukocyte Esterase NEGATIVE (NEGATIVE) Urine RBC 50-60 (0-2/HPF) Urine WBC 0-4 (0-5/HPF) Ur Epithelial Cells RARE (NONE-FEW) Ur Renal Epithelial Cell RARE Calcium Oxalate Crystal MODERATE (NEGATIVE) Amorphous Sediment MANY (NEGATIVE) Urine Bacteria 1+ H (NEGATIVE) Urine Mucus LIGHT (NONE-MOD) Meds: Medications Discontinued Medications Generic Name Dose Route Start Last Admin Trade Name Freq PRN Reason Stop Dose Admin Hydromorphone HCl 1 mg 06/28/18 07:44 06/28/18 07:56 Dilaudid IVPUSH 06/28/18 07:45 1 mg ONETIME ONE Administration Sodium Chloride 1,000 mls @ 999 mls/hr 06/28/18 02:48 06/28/18 03:10 Normal Saline IV 06/28/18 03:48 999 mls/hr STAT ONE Administration Ceftriaxone Sodium/Dextrose 1 50 mls @ 100 mls/hr 06/28/18 03:38 06/28/18 04: 14 gm/ Premix IV 06/28/18 04:07 100 mls/hr ONETIME ONE Administration Sodium Chloride 1,000 mls @ 999 mls/hr 06/28/18 06:15 06/28/18 06:18 Normal Saline IV 06/28/18 07:15 999 mls/hr STAT ONE Administration Sodium Chloride 1,000 mls @ 999 mls/hr 06/28/18 07:44 06/28/18 07:56 Normal Saline IV 06/28/18 08:44 999 mls/hr .Bolus ONE Administration Ketorolac Tromethamine 30 mg 06/28/18 02:48 06/28/18 03:15 Toradol IVPUSH 06/28/18 02:49 30 mg ONETIME ONE Administration Methylprednisolone Sodium Succinate 125 mg 06/28/18 03:35 06/28/18 04:13 Solu-Medrol IVPUSH 06/28/18 03:36 125 mg ONETIME ONE Administration Ondansetron HCl 8 mg 06/28/18 02:48 06/28/18 03:15 Zofran IVPUSH 06/28/18 02:49 8 mg ONETIME ONE Administration Tamsulosin HCl 0.4 mg 06/28/18 03:35 06/28/18 04:13 Flomax PO 06/28/18 03:36 0.4 mg ONETIME ONE Administration Departure - Departure Disposition: DC/Tfer to [facility] Clinical Impression: Obstructive uropathy, UTI, Urinary tract infectious disease - Discharge Information Referrals: Ira Gomes DO [Primary Care Provider] - Forms: ED Department Discharge <Destin Patrick - Last Filed: 06/28/18 10:02> ED ROS GENERAL - Review of Systems Review Of Systems: ROS reveals no pertinent complaints other than HPI. ED EXAM, GENERAL - Physical Exam Exam: See Below (See dictation) Course - Vital Signs Text/Narrative:: Patient's emergency department course has been unremarkable he continues with discomfort repeat scan demonstrates no change in position of the stone he remains with obstructive uropathy on the left I discussed case with urology at [facility] and emergency physician who graciously has accepted patient for transfer to go by ground ambulance Departure - Departure Time of Disposition: 10:01 Condition: Good
[2018-06-28] MEDS ORDERED: methylPREDNISolone Sodium Succinate 125 MG/2 ML SDV IVPUSH ONE (03:35)
[2018-06-28] MEDS ORDERED: Tamsulosin 0.4 MG Cap.ER PO ONE (03:35)
[2018-06-28] MEDS ORDERED: cefTRIAXone 1 GM in Premix Bag 1 BAG IV ONE (03:38)
[2018-06-28] MEDS ORDERED: HYDROmorphone 1 MG/ML Syringe IVPUSH ONE (07:44)
--- NOTE | 2018-06-28 09:33 | CT ---
HISTORY: Kidney stone. TECHNIQUE: Noncontrast CT of the abdomen and pelvis. COMPARISON: 06/28/2018. FINDINGS: Slightly increased perinephric stranding on the left. Mild left-sided hydronephrosis and hydroureter as before. No significant change in position of 4 mm calculus within the distal left ureter on image #135. Intrarenal calculus within the inferior pole collecting system of the right kidney is unchanged. No right-sided hydronephrosis. No renal mass. Urinary bladder is nondistended. Prostate calcifications are likely postinflammatory. - Fatty infiltration of the liver with areas of sparing. Gallbladder does not appear overly distended. Mild splenomegaly with the spleen measuring 13.8 cm. Adrenal glands normal. No focal pancreatic abnormality. - No small bowel obstruction. No appendicitis. - No fluid collection or free air. No abdominal aortic aneurysm. No adenopathy. - Degenerative changes of the hips and sacroiliac joints. - Minor subpleural atelectasis within the lung bases. No consolidation. IMPRESSION: 1. No significant change in position of distal left ureteral calculus. Persistent mild left-sided hydronephrosis. Increased perinephric stranding on the left. 2. No change in nonobstructive intrarenal calculus right kidney. 3. Fatty infiltration of the liver with areas of sparing. Dictated by Sergio Easton MD @ 06/28/2018 9:31:57 AM Please note that all CT scans at this facility use dose modulation, iterative reconstruction, and/or weight-based dosing when appropriate to reduce radiation dose to as low as reasonably achievable. Dictated by: Sergio Easton MD @ 06/28/2018 09:32:01 (Electronically Signed)
[2018-06-28 10:45] VITALS: BP 161/85
--- NOTE | 2018-06-30 12:03 | CT ---
EXAM DATE: 06/28/18 PATIENT'S AGE: 38 Patient: MISAEL FORDE Facility: [facility] : 1980 Study: CT-Abdomen/Pelvis -06/28/2018 3:19:37 AM Ordering Physician: justice Final Report: INDICATION: Left flank pain with hematuria TECHNIQUE: CT Abdomen and pelvis without i.v. contrast. Coronal and sagittal reformats were obtained. COMPARISON: 11/13/2016 FINDINGS: Lower chest: Unremarkable. Liver: Moderate inhomogeneous fatty infiltration of the liver is noted. Spleen: Unremarkable. Pancreas: Unremarkable. Gallbladder: Unremarkable. Kidney: There is a 3-4 mm stone present in the distal left ureter on image 121 causing mild left hydroureter and trace left renal pelviectasis. A 3 mm stone is present in the lower pole of the right kidney. Adrenal: Unremarkable. Bowel: Unremarkable. The appendix is normal in appearance and size. Vascular: Unremarkable. Lymph: Unremarkable. Peritoneum: Unremarkable. No pneumoperitoneum is seen. No significant ascites is noted. Pelvis: Unremarkable. Soft tissue: Unremarkable. Bone: Unremarkable for age. IMPRESSION: 1. There is a 3-4 mm stone present in the distal left ureter on image 121 causing mild left hydroureter and trace left renal pelviectasis. Dictated by Shalom Mitchell MD @ 06/28/2018 3:26:49 AM Please note that all CT scans at this facility use dose modulation, iterative reconstruction, and/or weight-based dosing when appropriate to reduce radiation dose to as low as reasonably achievable. Dictated by: Shalom Mitchell MD @ 06/28/2018 03:26:51 Signed by: Shalom Mitchell MD @06/28/2018 3:26:51 AM (Electronic Signature) Report Signed by Proxy. [facility] PSYCHIATRIC CENTERJorge Luis
== END 2018-06-28 11:00 ==
LOC: MW.ED 02:33
DX: N20.2 Calculus of kidney with calculus of ureter (principal); N39.0 Urinary tract infection, site not specified; F41.9 Anxiety disorder, unspecified; F32.9 Major depressive disorder, single episode, unspecified; K21.9 Gastro-esophageal reflux disease without esophagitis; Z79.899 Other long term (current) drug therapy
CPT/HCPCS: 36415; 74176; 80053; 81001; 85025; 87040; 87086; 96361; 96365; 96375; 99285; A9270; J0696; J1170; J1885; J2405; J2930; J7040; 99283

== ENCOUNTER 2019-08-13 07:21 | Emergency (ER) | payer BC ==
[2019-08-13] MEDS ORDERED: Ondansetron 4 MG/2 ML SDV IVPUSH ONE (07:41)
[2019-08-13] MEDS ORDERED: Ketorolac 30 MG/ML SDV IVPUSH ONE (07:41)
[2019-08-13] MEDS ORDERED: Sodium Chloride 0.9% 1,000 ML IV ONE (07:42)
[2019-08-13] MEDS ORDERED: Sodium Chloride 0.9% 10 ML Syringe FLUSH PRN (07:42)
[2019-08-13] MEDS ORDERED: Sodium Chloride 0.9% 2.5 ML Syringe FLUSH PRN (07:42)
--- NOTE | 2019-08-13 08:14 | EDM.PDOC ---
ED HPI GENERAL MEDICAL PROBLEM - General Chief Complaint: Genitourinary Problem Stated Complaint: POSSIBLE KIDNEY STONES Time Seen by Provider: 08/13/19 07:26 - History of Present Illness INITIAL COMMENTS - FREE TEXT/NARRATIVE: History of present illness: [Presents with a sudden onset of right flank pain this morning while he was driving to work pain was sudden severe debilitating like prior kidney stones. He had to rod puller while driving and call an ambulance he denies any nausea fever no dysuria no hematuria nothing makes it better or worse he says this is the same pain is prior kidney stones] Review of systems: As per history of present illness and below otherwise all systems reviewed and negative. Past medical history: As per history of present illness and as reviewed below otherwise noncontributory. Surgical history: As per history of present illness and as reviewed below otherwise noncontributory. Social history: No reported history of drug or alcohol abuse. Family history: As per history of present illness and as reviewed below otherwise noncontributory. Physical exam: HEENT: Atraumatic, normocephalic, pupils reactive, negative for conjunctival pallor or scleral icterus, mucous membranes moist, throat clear, neck supple, nontender, trachea midline. Appears moderately uncomfortable Lungs: Clear to auscultation, breath sounds equal bilaterally, chest nontender. Heart: S1S2, regular, negative for clicks, rubs, or JVD. Abdomen: Soft, nondistended, nontender. Negative for masses or hepatosplenomegaly. Negative for costovertebral tenderness. Pelvis: Stable nontender. Genitourinary: Deferred. Rectal: Deferred. Extremities: Atraumatic, negative for cords or calf pain. Neurovascular unremarkable. Neuro: Awake, alert, oriented. Cranial nerves II through XII unremarkable. Cerebellum unremarkable. Motor and sensory unremarkable throughout. Exam nonfocal. Diagnostics: Patient will be given Toradol and Zofran for his comfort urine and blood will be obtained and he will be reassessed. [] Therapeutics: [] Impression: Right flank pain [] Plan: Lab studies and pain medication reassess [] Definitive disposition and diagnosis as appropriate pending reevaluation and review of above. Right Flank Pain Score (Numeric/FACES): 2 - Related Data Allergies Allergy/AdvReac Type Severity Reaction Status Date / Time No Known Allergies Allergy Verified 08/13/19 07:27 Home Meds: Home Meds FLUoxetine [PROzac] 40 mg PO DAILY 08/14/16 [History] Topiramate 100 mg PO DAILY 08/14/16 [History] Omeprazole 20 mg PO DAILY 06/28/18 [History] Acetaminophen/oxyCODONE [Percocet 325-5 MG] 1 each PO Q6HR 3 Days #12 tab [Rx] Naproxen [EC-Naproxen] 500 mg PO Q12HR #20 tablet.dr 08/13/19 [Rx] Ondansetron [Zofran ODT] 4 mg PO Q6H PRN 5 Days #12 tab.dis 08/13/19 [Rx] Tamsulosin [Flomax] 0.4 mg PO DAILY 10 Days #10 cap.er 08/13/19 [Rx] Past Medical History HEENT History: Reports: None Other HEENT History: wears glasses Cardiovascular History: Reports: None Respiratory History: Reports: None Gastrointestinal History: Reports: GERD, Other (See Below) Genitourinary History: Reports: Renal Calculus Musculoskeletal History: Reports: Fracture Other Musculoskeletal History: hx of fx right hand Neurological History: Reports: Concussion, Migraines, Seizure Other Neuro History: has "low grade seizure disorder", last siezure was 3 years ago Psychiatric History: Reports: Anxiety, Depression Endocrine/Metabolic History: Reports: Obesity/BMI 30+ Hematologic History: Reports: None Immunologic History: Reports: None Oncologic (Cancer) History: Reports: None Dermatologic History: Reports: Eczema - Infectious Disease History Infectious Disease History: Reports: Chicken Pox - Past Surgical History Head Surgeries/Procedures: Reports: None HEENT Surgical History: Reports: Oral Surgery GI Surgical History: Reports: EGD Male Surgical History: Reports: Kidney Stone Extraction, Vasectomy Musculoskeletal Surgical History: Reports: ORIF Other Musculoskeletal Surgeries/Procedures:: right hand 4th finger pinning and pin removal Social & Family History - Family History Family Medical History: Noncontributory - Tobacco Use Smoking Status *Q: Former Smoker Used Tobacco, but Quit: Yes Month/Year Tobacco Last Used: 2016 - Caffeine Use Caffeine Use: Reports: None - Recreational Drug Use Recreational Drug Use: No ED ROS GENERAL - Review of Systems Review Of Systems: See Below ED EXAM, GENERAL - Physical Exam Exam: See Below Course - Vital Signs Last Recorded V/S: Last Vital Signs Temp 36.5 C 08/13/19 07:25 Pulse 76 08/13/19 08:52 Resp 16 08/13/19 08:19 BP 119/77 08/13/19 08:52 Pulse Ox 97 08/13/19 08:52 - Orders/Labs/Meds Orders: Active Orders 24 hr Category Date Time Status Sodium Chloride 0.9% [Saline Flush] Med 08/13/19 07:42 Active 10 ml FLUSH ASDIRECTED PRN Sodium Chloride 0.9% [Saline Flush] Med 08/13/19 07:42 Active 2.5 ml FLUSH ASDIRECTED PRN Saline Lock Insert [OM.PC] Stat Oth 08/13/19 07:42 Ordered Medication Orders Sodium Chloride (Saline Flush) 10 ml FLUSH ASDIRECTED PRN PRN Reason: Keep Vein Open Last Admin: 08/13/19 08:09 Dose: 10 ml Sodium Chloride (Saline Flush) 2.5 ml FLUSH ASDIRECTED PRN PRN Reason: Keep Vein Open Last Admin: 08/13/19 08:09 Dose: 2.5 ml Labs: Laboratory Tests 08/13/19 08/13/19 08/13/19 Range/Units 07:32 08:06 08:06 WBC 8.63 (4.0-11.0) K/uL RBC 4.90 (4.50-5.90) M/uL Hgb 15.1 (13.0-17.0) g/dL Hct 45.8 (38.0-50.0) % MCV 93.5 (80.0-98.0) fL MCH 30.8 (27.0-32.0) pg MCHC 33.0 (31.0-37.0) g/dL RDW Std Deviation 43.6 (28.0-62.0) fl RDW Coeff of [place] 13 (11.0-15.0) % Plt Count 205 (150-400) K/uL MPV 10.10 (7.40-12.00) fL Neut % (Auto) 68.3 (48.0-80.0) % Lymph % (Auto) 22.0 (16.0-40.0) % [place] % (Auto) 8.7 (0.0-15.0) % Eos % (Auto) 0.9 (0.0-7.0) % Baso % (Auto) 0.1 (0.0-1.5) % Neut # (Auto) 5.9 H (1.4-5.7) K/uL Lymph # (Auto) 1.9 (0.6-2.4) K/uL [place] # (Auto) 0.8 (0.0-0.8) K/uL Eos # (Auto) 0.1 (0.0-0.7) K/uL Baso # (Auto) 0.0 (0.0-0.1) K/uL Nucleated RBC % 0.0 /100WBC Nucleated RBCs # 0 K/uL Sodium 139 (136-148) mmol/L Potassium 4.1 (3.5-5.1) mmol/L Chloride 106 (98-107) mmol/L Carbon Dioxide 24.3 (21.0-32.0) mmol/L BUN 14 (7.0-18.0) mg/dL Creatinine 1.2 (0.8-1.3) mg/dL Est Cr Clr Drug Dosing 88.02 mL/min Estimated GFR (MDRD) > 60.0 ml/min Glucose 107 H (74-106) mg/dL Calcium 8.3 L (8.5-10.1) mg/dL Total Bilirubin 0.3 (0.2-1.0) mg/dL AST 17 (15-37) IU/L ALT 38 (14-63) IU/L Alkaline Phosphatase 117 H (46-116) U/L Total Protein 7.5 (6.4-8.2) g/dL Albumin 3.7 (3.4-5.0) g/dL Globulin 3.8 (2.6-4.0) g/dL Albumin/Globulin Ratio 1.0 (0.9-1.6) Urine Color YELLOW Urine Appearance CLEAR Urine pH 7.0 (5.0-8.0) Ur Specific [place] 1.020 (1.001-1.035) Urine Protein NEGATIVE (NEGATIVE) mg/dL Urine Glucose (UA) NEGATIVE (NEGATIVE) mg/dL Urine Ketones NEGATIVE (NEGATIVE) mg/dL Urine Occult Blood SMALL H (NEGATIVE) Urine Nitrite NEGATIVE (NEGATIVE) Urine Bilirubin NEGATIVE (NEGATIVE) Urine Urobilinogen 0.2 (<2.0) EU/dL Ur Leukocyte Esterase NEGATIVE (NEGATIVE) Urine RBC 0-2 (0-2/HPF) Urine WBC 0-2 (0-5/HPF) Ur Epithelial Cells RARE (NONE-FEW) Urine Bacteria NOT SEEN (NEGATIVE) Meds: Medications Generic Name Dose Route Start Last Admin Trade Name Freq PRN Reason Stop Dose Admin Sodium Chloride 10 ml 08/13/19 07:42 08/13/19 08:09 Saline Flush FLUSH 10 ml ASDIRECTED PRN Administration Keep Vein Open Sodium Chloride 2.5 ml 08/13/19 07:42 08/13/19 08:09 Saline Flush FLUSH 2.5 ml ASDIRECTED PRN Administration Keep Vein Open Discontinued Medications Generic Name Dose Route Start Last Admin Trade Name Freq PRN Reason Stop Dose Admin Sodium Chloride 1,000 mls @ 1,000 mls/hr 08/13/19 07:42 08/13/19 08:06 Normal Saline IV 08/13/19 08:41 1,000 mls/hr .Bolus ONE Administration Ketorolac Tromethamine 30 mg 08/13/19 07:41 08/13/19 08:08 Toradol IVPUSH 08/13/19 07:42 30 mg ONETIME ONE Administration Ondansetron HCl 4 mg 08/13/19 07:41 08/13/19 08:07 Zofran IVPUSH 08/13/19 07:42 4 mg ONETIME ONE Administration Departure - Departure Time of Disposition: 08:54 Disposition: Home, Self-Care 01 Condition: Good Clinical Impression: Renal calculi - Discharge Information *PRESCRIPTION DRUG MONITORING PROGRAM REVIEWED*: Not Applicable *COPY OF PRESCRIPTION DRUG MONITORING REPORT IN PATIENT BANG: Not Applicable Prescriptions: Acetaminophen/oxyCODONE [Percocet 325-5 MG] 1 each PO Q6HR 3 Days #12 tab Naproxen [EC-Naproxen] 500 mg PO Q12HR #20 tablet. Ondansetron [Zofran ODT] 4 mg PO Q6H PRN 5 Days #12 tab.dis PRN Reason: Nausea/Vomiting Tamsulosin [Flomax] 0.4 mg PO DAILY 10 Days #10 cap.er Instructions: Renal Colic, [id number] Forms: ED Department Discharge Additional Instructions: [facility] - Urology [address] [place] [id number] The following information is given to patients seen in the emergency department who are being discharged to home. This information is to outline your options for follow-up care. We provide all patients seen in our emergency department with a follow-up referral. The need for follow-up, as well as the timing and circumstances, are variable depending upon the specifics of your emergency department visit. If you don't have a primary care physician on staff, we will provide you with a referral. We always advise you to contact your personal physician following an emergency department visit to inform them of the circumstance of the visit and for follow-up with them and/or the need for any referrals to a consulting specialist. The emergency department will also refer you to a specialist when appropriate. This referral assures that you have the opportunity for follow-up care with a specialist. All of these measure are taken in an effort to provide you with optimal care, which includes your follow-up. Under all circumstances we always encourage you to contact your private physician who remains a resource for coordinating your care. When calling for follow-up care, please make the office aware that this follow-up is from your recent emergency room visit. If for any reason you are refused follow-up, please contact the [facility] Emergency Department at and asked to speak to the emergency department charge nurse. Sepsis Event Note - Evaluation Sepsis Screening Result: No Definite Risk - Focused Exam Vital Signs: Vital Signs Temp Pulse Resp BP Pulse Ox 08/13/19 08:52 76 119/77 97 08/13/19 08:19 82 16 119/77 98 08/13/19 07:25 36.5 C 78 117/63 97 Date Exam was Performed: 08/13/19 Time Exam was Performed: 08:53 - My Orders Last 24 Hours: My Active Orders 08/13/19 07:42 Sodium Chloride 0.9% [Saline Flush] 10 ml FLUSH ASDIRECTED PRN Sodium Chloride 0.9% [Saline Flush] 2.5 ml FLUSH ASDIRECTED PRN Saline Lock Insert [OM.PC] Stat - Assessment/Plan Last 24 Hours: My Active Orders 08/13/19 07:42 Sodium Chloride 0.9% [Saline Flush] 10 ml FLUSH ASDIRECTED PRN Sodium Chloride 0.9% [Saline Flush] 2.5 ml FLUSH ASDIRECTED PRN Saline Lock Insert [OM.PC] Stat
[2019-08-13 08:20] VITALS: BP 119/77
[2019-08-13 08:45] LABS: BLOOD UREA NITROGEN,BUN 14 mg/dL (7.0-18.0); CARBON DIOXIDE,CO2 24.3 mmol/L (21.0-32.0); CHLORIDE,CL 106 mmol/L (98-107); GLUCOSE RANDOM 107 mg/dL (74-106); POTASSIUM,K 4.1 mmol/L (3.5-5.1); SODIUM,NA 139 mmol/L (136-148)
[2019-08-13 08:52] VITALS: PULSE 76
== END 2019-08-13 09:12 | disposition home or self-care (01) ==
LOC: MW.ED 07:21
DX: N20.0 Calculus of kidney (principal); K21.9 Gastro-esophageal reflux disease without esophagitis; G40.909 Epilepsy, unspecified, not intractable, without status epilepticus; G43.909 Migraine, unspecified, not intractable, without status migrainosus; E66.9 Obesity, unspecified; F32.9 Major depressive disorder, single episode, unspecified; F41.9 Anxiety disorder, unspecified; Z68.37 Body mass index [BMI] 37.0-37.9, adult; Z79.899 Other long term (current) drug therapy; Z87.891 Personal history of nicotine dependence; Z87.442 Personal history of urinary calculi
CPT/HCPCS: 80053; 81001; 85025; 96374; 96375; 99284; J1885; J2405; J7030; 99283

== ENCOUNTER 2022-08-28 05:44 | Emergency (ER) | payer BC ==
[2022-08-28] MEDS ORDERED: HYDROmorphone 1 MG/ML Syringe IVPUSH ONE (05:59)
[2022-08-28] MEDS ORDERED: Ketorolac 30 MG/ML SDV IVPUSH ONE (05:59)
[2022-08-28 06:17] LABS: BASOPHILS PERCENT AUTO 0.1 % (0.0-1.5); EOSINOPHILS ABSOLUTE AUTO 0.2 K/uL (0.0-0.7); EOSINOPHILS PERCENT AUTO 1.6 % (0.0-7.0); HEMATOCRIT 44.1 % (38.0-50.0); LYMPHOCYTES ABSOLUTE AUTO 2.6 K/uL (0.6-2.4); LYMPHOCYTES PERCENT AUTO 27.2 % (16.0-40.0); MEAN CORPUSCULAR HEMOGLOBIN 30.4 pg (27.0-32.0); MEAN CORPUSCULAR VOLUME 89.3 fL (80.0-98.0); MONOCYTES ABSOLUTE AUTO 1.1 K/uL (0.0-0.8); NEUTROPHILS ABSOLUTE AUTO 5.6 K/uL (1.4-5.7); NEUTROPHILS PERCENT AUTO 59.1 % (48.0-80.0); NRBC ABSOLUTE 0 K/uL; RED BLOOD CELL COUNT 4.94 M/uL (4.50-5.90); WHITE BLOOD CELL COUNT,WBC 9.41 K/uL (4.0-11.0)
[2022-08-28 06:19] LABS: COLOR,URINE YELLOW; GLUCOSE,URINE NEGATIVE (NEGATIVE); KETONES,URINE TRACE mg/dL (NEGATIVE); LEUKOCYTE ESTERASE,URINE NEGATIVE (NEGATIVE); NITRITE,URINE POSITIVE (NEGATIVE); OCCULT BLOOD,URINE LARGE (NEGATIVE); PH,URINE 6.5 (5.0-8.0); PROTEIN,URINE >=300 mg/dL (NEGATIVE)
[2022-08-28 06:20] LABS: APPEARANCE,URINE CLOUDY; BILIRUBIN,URINE MODERATE (NEGATIVE)
[2022-08-28 06:21] LABS: BACTERIA,URINE FEW (NEGATIVE); EPITHELIAL CELLS,URINE FEW (NONE-FEW); RBC,URINE TOO NUMEROUS TO CT (0-2/HPF)
[2022-08-28 06:22] LABS: CALCIUM OXALATE CRYSTALS,URINE FEW (NEGATIVE)
[2022-08-28 06:51] LABS: A/G RATIO 0.9 (0.9-1.6); ALANINE AMINOTRANSFERASE,ALT 40 IU/L (14-63); ALBUMIN 3.5 g/dL (3.4-5.0); ALKALINE PHOSPHATASE 120 U/L (46-116); ASPARTATE AMNIOTRANSFERASE,AST 28 IU/L (15-37); BILIRUBIN TOTAL 0.6 mg/dL (0.2-1.0); BLOOD UREA NITROGEN,BUN 12 mg/dL (7.0-18.0); CALCIUM 8.4 mg/dL (8.5-10.1); CARBON DIOXIDE,CO2 26.2 mmol/L (21.0-32.0); CHLORIDE,CL 101 mmol/L (98-107); CREATININE 1.1 mg/dL (0.8-1.3); GLUCOSE RANDOM 123 mg/dL (74-106); POTASSIUM,K 3.7 mmol/L (3.5-5.1); PROTEIN TOTAL,TP 7.6 g/dL (6.4-8.2); SODIUM,NA 138 mmol/L (136-148)
[2022-08-28 06:52] LABS: ESTIMATED GFR 86 mL/min (>60)
[2022-08-28 07:04] VITALS: BP 113/58; PULSE 83
[2022-08-28 07:29] LABS: PLATELET COUNT,PLT 168 K/uL (150-400)
== END 2022-08-28 06:55 | disposition home or self-care (01) ==
LOC: MW.ED 05:44
DX: N13.2 Hydronephrosis with renal and ureteral calculous obstruction (principal); R31.9 Hematuria, unspecified; K21.9 Gastro-esophageal reflux disease without esophagitis; E66.9 Obesity, unspecified; Z79.899 Other long term (current) drug therapy
CPT/HCPCS: 36415; 74176; 80053; 81001; 85025; 96374; 96375; 99284; J1170; J1885